=== PATIENT | female | born 2005 | race Caucasian/White ===

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

== ENCOUNTER 2024-02-01 13:54 | Outpatient (CLI) | payer BC, SELFPAY ==
[2024-02-01 14:43] LABS: Basophils % 0.3 %; Eosinophils # 0.1 10^3/uL (0.0-0.8); Eosinophils % 1.9 %; Hematocrit 37.8 % (36-47); Lymphocytes # 1.8 10^3/uL (1.5-6.5); Lymphocytes % 28.4 %; Mean Corpuscular HGB Conc 32.8 g/dL (30-55); Mean Corpuscular Hemoglobin 30.2 pg (27-33); Mean Platelet Volume 8.8 fL (7.4-10.4); Monocytes # 0.7 10^3/uL (0.2-0.9); Monocytes % 10.3 %; Neutrophils # 3.72 10^3/uL (1.8-8.0); Neutrophils % 58.8 %; Nucleated Red Blood Cells % 0 %; Platelet Count 308 10^3/cmm (157-399); Red Blood Count 4.11 10^6/uL (3.85-5.65); Red Cell Distribution Width 11.9 % (12.1-15.1); White Blood Count 6.33 10^3/uL (4.5-13.0)
[2024-02-01 14:45] LABS: Erythrocyte Sedimentation Rate 22 mm/hr (0-15)
[2024-02-01 15:04] LABS: Alanine Aminotransferase 19 U/L (0-33); Alkaline Phosphatase 92 U/L (35-105); Aspartate Amino Transferase 38 U/L (0-32); C Reactive Protein 23.8 mg/L (0.0-4.9); Globulin 2.9 g/dL (1.3-4.6); Glomerular Filtration Rate 128.8 mL/min (90-130); Total Bilirubin 0.2 mg/dL (0.15-1.2); Total Protein 6.9 g/dL (6.6-8.7)
== END 2024-02-01 13:55 | disposition home or self-care (01) ==
PROVIDERS: PCP Internal Medicine; Visit Provider Internal Medicine Rheumatology
DX: M05.79 Rheumatoid arthritis with rheumatoid factor of multiple sites without organ or systems involvement (principal); Z79.899 Other long term (current) drug therapy
CPT/HCPCS: 36415; 80076; 82565; 85025; 85651; 86140

== ENCOUNTER 2024-05-31 14:07 | Outpatient (CLI) | payer BC, SELFPAY ==
[2024-05-31 14:32] LABS: Basophils % 0.3 %; Eosinophils # 0.2 10^3/uL (0.0-0.8); Eosinophils % 3.4 %; Hematocrit 37.2 % (36-47); Lymphocytes # 1.8 10^3/uL (1.5-6.5); Lymphocytes % 30.5 %; Mean Corpuscular HGB Conc 32.8 g/dL (30-55); Mean Corpuscular Hemoglobin 28.9 pg (27-33); Mean Corpuscular Volume 88.2 fl (85-98); Mean Platelet Volume 8.9 fL (7.4-10.4); Monocytes # 0.5 10^3/uL (0.2-0.9); Monocytes % 8.5 %; Nucleated Red Blood Cells % 0 %; Platelet Count 280 10^3/cmm (157-399); Red Blood Count 4.22 10^6/uL (3.85-5.65); Red Cell Distribution Width 11.8 % (12.1-15.1); White Blood Count 5.97 10^3/uL (4.5-13.0)
[2024-05-31 14:36] LABS: Erythrocyte Sedimentation Rate 28 mm/hr (0-15)
[2024-05-31 14:46] LABS: Alanine Aminotransferase 32 U/L (0-33); Albumin Level 4.1 g/dL (3.5-5.2); Alkaline Phosphatase 92 U/L (35-105); Aspartate Amino Transferase 52 U/L (0-32); C Reactive Protein 13.8 mg/L (0.0-4.9); Globulin 2.9 g/dL (1.3-4.6); Glomerular Filtration Rate 158.9 mL/min (90-130); Total Bilirubin 0.2 mg/dL (0.15-1.2)
== END 2024-05-31 14:08 | disposition home or self-care (01) ==
LOC: LAB 14:08
PROVIDERS: PCP Internal Medicine; Visit Provider Internal Medicine Rheumatology
DX: Z79.899 Other long term (current) drug therapy (principal); M05.79 Rheumatoid arthritis with rheumatoid factor of multiple sites without organ or systems involvement
CPT/HCPCS: 36415; 80076; 82565; 85025; 85651; 86140

== ENCOUNTER 2024-07-09 11:57 | Outpatient (CLI) | payer BC, SELFPAY ==
[2024-07-09 12:36] LABS: Alanine Aminotransferase 30 U/L (0-33); Alkaline Phosphatase 97 U/L (35-105); Aspartate Amino Transferase 47 U/L (0-32); Globulin 3.2 g/dL (1.3-4.6); Total Bilirubin 0.2 mg/dL (0.15-1.2); Total Protein 7.2 g/dL (6.6-8.7)
== END 2024-07-09 11:58 | disposition home or self-care (01) ==
PROVIDERS: PCP Internal Medicine; Visit Provider Internal Medicine Rheumatology
DX: R74.8 Abnormal levels of other serum enzymes (principal)
CPT/HCPCS: 36415; 80076